=== PATIENT | female | born 1940 | race Caucasian/White ===

== ENCOUNTER → 2017-05-28 | Outpatient (CLI) | payer OTHER ==
[~2017-05-28] MED LIST: 8 HOUR C500 MG PO; ANALGESIC325 MG PO; ASPIRIN EC81 M1 PO; CARVEDILOL12.5 MG PO; CARVEDILOL3.125 MG PO; COUMADIN 4 MG TA4 M1 PO; COZAAR; COZAAR 50 MG TA50 M2 PO; FOLIC ACID1 MG PO; HCTZ; HYDROCHLOROTHIA25 M2 PO; IRON325 PO; LEVOTHROID; LOPRESSOR; M VIT PO; MEDROLDOSEPACK PO; MOBIC7.5 M1 PO; NORCO 5-325 TA1 EACH PO; PRILOSEC 20 MG20 MG PO; PYRIDOXINE HCL100 MG PO; SIMVASTATIN40 MG PO; SYNTHROID75 MCG PO; ULTRAM 50MG TAB50 MG PO
== END ==
LOC: M.RAD 11:50
DX: M54.42 Lumbago with sciatica, left side (principal); G89.29 Other chronic pain

== ENCOUNTER 2017-06-01 19:15 | Inpatient (IN) | payer OTHER ==
[~2017-06-01] VITALS: Ht 157.5 cm; Wt 86.6 kg
[~2017-06-01 19:15] MED LIST changes: -CARVEDILOL3.125 MG PO; -MEDROLDOSEPACK PO; -PRILOSEC 20 MG20 MG PO
[2017-06-01 19:21] VITALS: BP 135/43
[2017-06-01 20:03] LABS: ABSOLUTE BASOPHILS 0.1 thou/uL (0.0-0.2); ABSOLUTE EOSINOPHILS 0.1 thou/uL (0.0-0.7); ABSOLUTE LYMPHOCYTES 1.4 thou/uL (0.8-5.3); ABSOLUTE NEUTROPHILS 10.7 thou/uL (1.6-8.1); BASOPHILS 0.6 %; EOSINOPHILS 0.5 %; LYMPHOCYTES 10.2 %; MCHC 32.5 g/dL (28.0-37.0); MCV 89.1 fL (80.0-100.0); MONOCYTES 7.8 %; MPV 7.3 fl. (7.2-11.1); NUCLEATED RBCS 1 /100WBC; PLATELET COUNT* 400 thou/uL (150-400); POLYS 80.9 %; RBC 1.83 mil/uL (4.20-5.00); RDW-CV 18.8 % (10.5-14.5); WBC 13.2 thou/uL (4.0-11.0)
[2017-06-01 20:04] LABS: CREATININE 1.4 mg/dL (0.6-1.3); HEMATOCRIT 16.3 % (37.0-47.0); HEMOGLOBIN 5.3 gm/dL (12.0-15.0)
[2017-06-01 20:07] LABS: PROTIME 68.4 Seconds (9.20-11.50)
[2017-06-01 20:08] LABS: INR 7.3
[2017-06-01 20:15] LABS: ALBUMIN 3.5 g/dL (3.4-5.0); TOTAL BILIRUBIN 0.3 mg/dL (<0.1-1.0); TOTAL PROTEIN 6.7 g/dL (6.4-8.2); TROPONIN-I LEVEL 0.17 ng/mL (<0.06)
[2017-06-01 21:48] VITALS: BP 134/43
[2017-06-01 22:45] VITALS: BP 100/77; BP 119/57; BP 123/66
--- NOTE | 2017-06-01 23:30 | NUR ---
PT BROUGHT TO ICU BED 4 FROM ED. ASSESSMENT AND VS OBTAINED, SEE CHARTING. ELECTRONIC INTELLIGENCE OFFICER ON AND TRACING SR. PT IS BEING DX WITH THE FOLLOWIN:ANEMIA WHICH IS CHRONIC AND SEE'S DR WADE. DR WADE HAS BEEN GIVING PT ARAUSEP INJECTION.WITH THE ANEMIA SHE HAS BE HAVING CP. PT IS ON NC 5L AND KEEPING SATS TO NORMAL
--- NOTE | 2017-06-01 23:55 | NUR ---
COUMADIN REGIMEN AT : 3 MG-FRIDAY, FRI AND 2MG- FRI,, FRI, SAT. WAS LAST CHECKED ON 05/28/17 AND IT WAS 3. NO ORDERS WERE GIVEN TO HER TO CHANGE DOSE.
[2017-06-02] VITALS (16 sets, daily range): BP systolic 89–162; BP diastolic 40–80
[2017-06-02 01:27] LABS: HEMATOCRIT 19.5 % (37.0-47.0); HEMOGLOBIN 6.4 gm/dL (12.0-15.0)
--- NOTE | 2017-06-02 07:30 | NUR ---
ASSUMED CARE OF PATIENT AFTER RECEIVING BEDSIDE REPORT. ASSESSMENT COMPLETED, VSS. PATIENT DENIES COMPLAINTS AND CONCERNS OUTSIDE OF WANTING TO GO HOME. RN EXPLAINED RISKS OF GETTING OUT OF BED WITH BLOOD BEING THIN. REPEAT HEMOGLOBINS AND TROPONINS TRENDING. PATIENT DENIES PAIN AT THIS TIME. PATIENT ALSO TURNS SELF IN BED, RN ENCOURAGED PATIENT TO REPOSITION SELF FREQUENTLY, PATIENT STATES UNDERSTANDING. EYELINER NOTED TO RIGHT EYE AND NOT LEFT, PATIENT STATED NOT BRUISING. TAR DISTRIBUTOR OPERATOR IN PLACE, SINUS RHYTHM WITH FREQUENT PVCS NOTED. BED ALARM ON. CALL LIGHT WITHIN REACH, USE REINFORCED. WILL CONTINUE TO MONITOR.
[2017-06-02 07:42] LABS: HEMATOCRIT 23.7 % (37.0-47.0); HEMOGLOBIN 7.9 gm/dL (12.0-15.0)
[2017-06-02 07:53] LABS: PROTIME 44.2 Seconds (9.20-11.50)
[2017-06-02 07:55] LABS: INR 4.7
--- NOTE | 2017-06-02 11:00 | NUR ---
SPOKE WITH PT, AND SON IN THE ROOM ALSO. PT LIVES AT HOME WITH HER , SHE SAID THEY HAVE BEEN MANAGING FINE AT HOME. SHE IS FEELING MUCH BETTER AFTER HER BLOOD TRANSFUSION AND HOPES TO BE ABLE TO GO HOME SOON. PT DENIES ANY DISCHARGE NEEDS. HER PCP IS DR. SALAZAR, HER WAREHOUSE SUPERVISOR IS DR. REBOLLAR AND HE IS THE ONE WHO MANAGES HER COUMADIN. DISCUSSED ROLE OF CASE MGT, WILL CONTINUE TO FOLLOW.
[2017-06-02 11:05] LABS: URINE BILIRUBIN NEGATIVE (Negative); URINE BLOOD 1+ (Negative); URINE CLARITY CLEAR; URINE COLOR YELLOW; URINE GLUCOSE-RANDOM NEGATIVE (Negative); URINE KETONES NEGATIVE (Negative); URINE PROTEIN NEGATIVE (Negative); URINE SPECIFIC GRAVITY <= 1.005 (1.005-1.030); URINE UROBILINOGEN 0.2 E.U./dl (0.2-1.0)
[2017-06-02 11:06] LABS: URINE LEUKOCYTES-REFLEX 3+ (Negative); URINE NITRITE-REFLEX POSITIVE (Negative)
[2017-06-02 11:16] LABS: BACTERIA-REFLEX >30 Many /HPF (None Seen); CASTS None Seen /LPF (None Seen); CRYSTALS None Seen /LPF (None Seen); SQUAMOUS 4-10 Moderate /LPF (0-3); URINE WBC-REFLEX >25 Many /HPF (0-5); WBC CLUMPS Moderate (None Seen)
[2017-06-02 12:15] LABS: HEMATOCRIT 23.1 % (37.0-47.0); HEMOGLOBIN 7.6 gm/dL (12.0-15.0)
--- NOTE | 2017-06-02 12:23 | EKG ---
[place] [address] ELECTROCARDIOGRAM REPORT Name: NAILA LEE Room: [address] ADM IN M.R.#: [id number] Admission: 06/01/17 Attend Phys: Henry Bazzi MD Discharge: Date of : 44 Report #: [id number] THIS REPORT FOR: //name// [facility] ED Test Date: 2017-06-01 Test Time: 19:22:39 Pat Name: NAILA LEE Department: Room: [facility] Gender: F Crayon Sorting Machine Feeder: : 1940 Requested By: Neha Montgomery Order Number: [id number] MD: Jd Casas Measurements Intervals [place] Rate: 96 P: 104 NV: 192 QRS: 15 QRSD: 156 T: 56 QT: 398 QTc: 503 Interpretive Statements Sinus rhythm Right bundle branch block st depression, possible ischemia Compared to ECG 09/09/2009 08:01:51 Right bundle-branch block now present Electronically Signed On 06-02-2017 12:22:47 CDT by Jd Casas [email or web address] <ELECTRONICALLY SIGNED> By: Jd Casas MD, FAC 06/02/17 1222 21 21 Jd Casas MD, [facility] /EPI
--- NOTE | 2017-06-02 14:16 | 2DMMODE ---
[place] [address] 2 D/M-MODE ECHOCARDIOGRAM Name: NAILA LEE Room: [address] IN [facility]#: [id number] Admission: 06/01/17 Attend Phys: Henry Bazzi, Discharge: Date of : 44 Date of Service: 06/02/17 1415 Report #: [id number] THIS REPORT FOR: //name// APPROVED REPORT Study performed: 06/02/2017 09:39:18 EXAM: Comprehensive 2D, Doppler, and color-flow Echocardiogram Patient Location: In-Patient Room #: [facility] BSA: 2.06 HR: 77 bpm BP: 149/69 mmHg Other Information Study Quality: Adequate Indications Dyspnea Chest Pain 2D Dimensions LVEF(%): 44.97 (>50%) IVSd: 11.65 (7-11mm) LVOT Diam: 20.25 (18-24mm) LVDd: 42.95 mm PWd: 10.20 (7-11mm) Ascending Ao: 31.06 (22-36mm) LVDs: 33.45 (25-40mm) Aortic Root: 26.80 mm Espinosa's LVEF: 44.97 % Volumes Left Atrial Volume (Systole) LA ESV Index: 31.30 mL/m2 Aortic Valve AoV Peak Esa.: 1.45 m/s AO Peak Gr.: 8.46 mmHg LVOT Max P.69 mmHg AO Mean Gr.: 4.69 mmHg LVOT Mean P.83 mmHg LVOT Max V: 1.19 m/s AO V2 VTI: 28.30 cm LVOT Mean V: 0.77 m/s SHAGUFTA (VTI): 2.87 cm2 LVOT V1 VTI: 25.19 cm Mitral Valve MV Peak Gr.: 11.05 [place] [address] 2 D/M-MODE ECHOCARDIOGRAM Name: NAILA LEE Room: [address] IN M.R.#: [id number] Admission: 06/01/17 Attend Phys: Henry Bazzi, Discharge: Date of : 44 Date of Service: 06/02/17 1415 Report #: [id number] MV Mean Gr.: 5.02 mmHg E/A Ratio: 1.71 MV Decel. Time: 192.69 ms MV E Max Esa.: 1.54 m/s MV PHT: 55.88 ms MVA (PHT): 3.94 cm2 TDI E/Lateral E': 14.00 E/Medial E': 17.11 Medial E' Esa.: 0.09 m/s Lateral E' Esa.: 0.11 m/s Pulmonary Valve PV Peak Esa.: 1.27 m/s PV Peak Gr.: 6.46 mmHg Tricuspid Valve TR Peak Gr.: 26.94 mmHg RVSP: 31.94 mmHg Left Ventricle The left ventricle is normal size. moderate hypokinesis noted of the posterolateral wall There is normal left ventricular wall thickness. Left ventricular systolic function is mildly decreased. LVEF is 40-45%. The left ventricular diastolic function is normal. Right Ventricle The right ventricle is normal size. The right ventricular systolic function is normal. Atria Left atrium is mildly dilated. The right atrium size is normal. Aortic Valve The Aortic valve is sclerotic. No aortic regurgitation is present. There is no aortic valvular stenosis. Mitral Valve Mitral Valve replacement There is no mitral valve regurgitation noted. No evidence of mitral valve stenosis. Tricuspid Valve The tricuspid valve is normal in structure. Mild tricuspid regurgitation. The RVSP is __31.9 mmHg. Pulmonic Valve Pulmonic valve is not well visualized. There is no pulmonic [place] [address] 2 D/M-MODE ECHOCARDIOGRAM Name: DANILO LEEGAURAV Mora Room: [address] IN M.R.#: [id number] Admission: 06/01/17 Attend Phys: Henry Bazzi, Discharge: Date of : 44 Date of Service: 06/02/17 1415 Report #: [id number] Great Vessels The aortic root is normal in size. IVC is not well visualized. Pericardium There is no pericardial effusion. <Conclusion> LVEF is 40-45%. moderate hypokinesis noted of the posterolateral wall Left atrium is mildly dilated. The Aortic valve is sclerotic. Mitral Valve replacement <ELECTRONICALLY SIGNED> By: Jd Casas MD, FACC 06/02/17 1415 1415 1415 Jd Casas MD, FACC /INF
--- NOTE | 2017-06-02 16:31 | NUR ---
CONCETTA TRANSFERED TO ROOM 213 FROM ICU AT 15:50. REPORT TAKEN FROM ICU NURSE AND PATIENT TRANSPORTED VIA WHEELCHAIR TO ROOM.
--- NOTE | 2017-06-02 17:47 | CON ---
[address] [address] CONSULTATION Name: SCOTT LEERacheal Mora Room: [address] IN M.R.#: [id number] Admission: 06/01/17 Attend Phys: Henry Bazzi MD Discharge: Date of : 42 Report #: [id number] THIS REPORT FOR: //name// CC: Jd Bazzi DATE OF SERVICE: 06/02/2017 HISTORY OF PRESENT ILLNESS: The patient is a 77-year-old white female who I was asked to see in the hospital today after she complained of chest pain. The patient has an extensive past medical history. Unfortunately, not a lot of her old records are available. Apparently, she had coronary artery bypass surgery in 1998. In 2009, she suffered an acute lateral myocardial infarction, felt to be secondary to occluded vein graft. She underwent stenting of the vein graft, but developed papillary muscle rupture and underwent emergent mitral valve replacement with a mechanical mitral valve in August 2009. Because of recurrent GI bleeding, she eventually underwent hemicolectomy. The patient has been followed by Dr. Espinal since that time. The patient states that she was doing well until recently. She notes with minimal exertion, she develops pain in her chest that goes into her back and makes her short of breath. It is also constant ache in her chest. She denied any fever, cough, or swelling. She notes occasional racing of her heart, but no syncope. Because of chest pain, she finally came to the hospital yesterday and was admitted. I was asked to see her for further evaluation and treatment. She has had no syncope. She denied any bleeding. She does have a history of anemia and has been receiving Aranesp injections from her public stenographer. PAST MEDICAL HISTORY: Otherwise significant for partial colectomy because of recurrent GI bleeding. She has had previous carotid endarterectomy by Dr. Rubio. She has a history of iron deficiency anemia. She has chronic kidney disease. She has had a kidney removed in the past after kidney stones. She has had tonsillectomy. She has a history of hypertension and hyperlipidemia. No history of diabetes. MEDICATIONS: Include albuterol inhaler for asthma, aspirin a day, carvedilol, iron pills, hydrochlorothiazide, Synthroid, losartan, Mobic, simvastatin, and warfarin. ALLERGIES: She has no known drug allergies. FAMILY HISTORY: Significant for heart disease. SOCIAL HISTORY: She is . She and her live in [place]. [place] [address] CONSULTATION Name: NAILA LEE Room: [address]#: [id number] Admission: 06/01/17 Attend Phys: Henry Bazzi MD Discharge: Date of : 44 Report #: [id number] REVIEW OF SYSTEMS: She is overweight, being standing 5 feet 2 inches and weighing 190 pounds. PHYSICAL EXAMINATION: VITAL SIGNS: She had a blood pressure of 140/70, pulse 70. She was afebrile. HEENT: She was anicteric. Conjunctivae are pale. Mucous members appear dry. NECK: Veins nondistended. No carotid bruits. CHEST: Clear to auscultation. HEART: Regular rate and rhythm with a metallic mitral opening and closing sound. ABDOMEN: Obese. EXTREMITIES: Had no pitting edema. Dorsalis pedis pulse cannot be palpated. SKIN: Cool and dry. NEUROLOGIC: Nonfocal. Her ECG from last night showed a sinus rhythm, occasional PVC with a right bundle, nonspecific ST and T-wave changes. Workup in the emergency room last night, she had a portable chest x-ray that showed granuloma of the lung, otherwise clear lung jones, evidence of previous sternotomy. Her lab work, sodium 138, BUN is 55, creatinine is 1.4, glucose 132. Liver function studies are normal. Troponin is 1.28. Her INR was 7.3. Her white blood cell count 13.2, hemoglobin on admission was 5.3. IMPRESSION AND RECOMMENDATIONS: 1. Non-ST elevation myocardial infarction, previous bypass surgery and stenting, suspect secondary to severe anemia. I would not recommend cardiac catheterization at this time. 2. Previous mitral valve replacement. Recommend repeat echocardiogram. I would continue anticoagulation, maintain an INR of 2.5 to 3. 3. History of hypertension. The patient has been on a beta olimpia, diuretic and ARB. 4. Hyperlipidemia. The patient is on a statin drug. 5. History of asthma. 6. Obesity. 7. Previous carotid endarterectomy. 8. Chronic anemia. The patient had previous hemicolectomy. The patient is followed by hematology. 9. Elevated INR. I would hold warfarin until INR is between 2.5 and 3. 10. Chronic kidney disease. <ELECTRONICALLY SIGNED> By: Jd Casas MD, FACC 06/02/17 1747 0858 [id number] Casas MD, FACC /nt
--- NOTE | 2017-06-02 18:07 | NUR ---
PATINET RESTING IN CHAIR IN ROOM. VITAL SIGNS DSTABLE AND PATIENT IN NOAPPARENT DISTRESS AT THIS TIME. HOURLY ROUNDING COMPLETED FOR PATINET SAFETY. IV PROTONIX PER ORDERS. INR 4.7. EF 40-45%
[2017-06-02 20:46] LABS: HEMATOCRIT 29.5 % (37.0-47.0); HEMOGLOBIN 9.9 gm/dL (12.0-15.0)
--- NOTE | 2017-06-02 23:39 | NUR ---
PT ALERT ORIENTED. TELEMETRY SHOW SR. PT UP AD DAYNE IN ROOM. PROTONIX AT 8MG/HR OR 20MLS/HR. WILL CONTINUE TO MONITOR.
[2017-06-03 00:32] VITALS: BP 120/47
[2017-06-03 04:00] VITALS: BP 130/41
[2017-06-03 05:50] LABS: HEMATOCRIT 27.9 % (37.0-47.0); HEMOGLOBIN 9.5 gm/dL (12.0-15.0); PROTIME 24.2 Seconds (9.20-11.50)
[2017-06-03 06:07] LABS: INR 2.5
[2017-06-03 06:16] LABS: ANION GAP 12 mmol/L (7-16); BUN 39 mg/dL (7-18); CALCIUM 8.7 mg/dL (8.5-10.1); CHLORIDE 102 mmol/L (98-107); CHOLESTEROL 158 mg/dL (<200); CO2 22 mmol/L (21-32); CREATININE 1.3 mg/dL (0.6-1.3); GLUCOSE 104 mg/dL (70-99); HDL CHOLESTEROL 47 mg/dL (>40); LDL CHOLESTEROL 70 mg/dL (<100); MAGNESIUM 1.7 mg/dL (1.8-2.4); POTASSIUM 3.5 mmol/L (3.5-5.1); SODIUM 136 mmol/L (136-145); TC:HDL 3.4 Ratio (Not establshd); TRIGLYCERIDE 206 mg/dL (<150); VLDL 41 mg/dL (<40)
[2017-06-03 06:20] LABS: SERUM ASSESSMENT Clear
[2017-06-03 06:27] LABS: HEMATOCRIT 28.2 % (37.0-47.0); HEMOGLOBIN 9.5 gm/dL (12.0-15.0); MCH 30.2 pg (26.0-34.0); MCHC 33.7 g/dL (28.0-37.0); MCV 89.5 fL (80.0-100.0); MPV 7.4 fl. (7.2-11.1); RBC 3.15 mil/uL (4.20-5.00); WBC 13.7 thou/uL (4.0-11.0)
--- NOTE | 2017-06-03 10:55 | EKG ---
[place] [address] ELECTROCARDIOGRAM REPORT Name: NAILA LEE Room: [address] ADM IN M.R.#: [id number] Admission: 06/01/17 Attend Phys: Henry Bazzi MD Discharge: Date of : 44 Report #: [id number] THIS REPORT FOR: //name// [facility] Test Date: 2017-06-03 Test Time: 08:23:42 Pat Name: NAILA LEE Department: Room: [facility] Gender: F Expediter Service Order: KAT : 1940 Requested By: Henry Bazzi Order Number: [id number] Reading MD: Jd Casas Measurements Intervals [place] Rate: 86 P: -28 TX: 129 QRS: -11 QRSD: 80 T: QT: 367 QTc: 439 Interpretive Statements Sinus rhythm Low voltage, extremity leads Nonspecific T abnormalities, lateral leads Baseline wander in lead(s) III,aVF Compared to ECG 06/01/2017 19:22:39 Low QRS voltage now present Right bundle-branch block no longer present Electronically Signed On 06-03-2017 10:55:33 CDT by Jd Casas [email or web address] <ELECTRONICALLY SIGNED> By: Jd Casas MD, [facility] 06/03/17 1055 2 2 Jd Casas MD, [facility] /EPI
--- NOTE | 2017-06-03 11:41 | NUR ---
Nutrition: Pt seen for nursing risk 2 points. Pt not in room at time of visit. Per RN, nusanjay of wt hx/loss. Pt is not eating well. On CLD - RD ordered Boost Breeze. Albumin 3.5, BNP 2043, BG ok. RX: vit C, statin, heparin. Wt: 191#. Inadequate oral intake R/T diet order AEB CLD. Advance diet as appropriate. Boost Breeze daily. Consider Mild to Low risk.
[2017-06-03 12:00] VITALS: BP 111/52
[2017-06-03 16:32] VITALS: BP 155/63
[2017-06-03 18:22] LABS: INR 2.1; PROTIME 19.8 Seconds (9.20-11.50)
[2017-06-03 20:00] VITALS: BP 142/74
[2017-06-03 22:42] VITALS: BP 126/57; BP 130/52
[2017-06-04 04:00] VITALS: BP 141/45
--- NOTE | 2017-06-04 05:10 | NUR ---
INITAL ASSESSMENT PT ALERT ORIENTED. UP AD DAYNE IN ROOM. HEPARIN AT 1100 UNITS/HR. PTT AT 2100 WAS 198.4. HEPARIN QTT OFF X ONE HR AND RESTARTED AT 800 UNITS/HR. NEXT PTT DRAWN AT 0500. FFP GIVEN FOR INR 2.1. PT NPO AT AL FOR EGD. PROTONIX QTT AT 8MG/HR. TELEMETRY SHOWS SR BBB. WILL CONTINUE TO MONITOR.
[2017-06-04 05:27] LABS: HEMATOCRIT 24.7 % (37.0-47.0); HEMOGLOBIN 8.6 gm/dL (12.0-15.0)
[2017-06-04 05:48] LABS: INR 1.3; PROTIME 12.8 Seconds (9.20-11.50)
[2017-06-04 11:33] VITALS: BP 141/68
[2017-06-04 15:10] VITALS: BP 141/68
[2017-06-04 17:39] VITALS: BP 136/49
--- NOTE | 2017-06-04 18:14 | NUR ---
CONCETTA RESTING IN CHAIR IN ROOM. BOWEL PREP UNDERWAY AND PATIENT TOLERATING UP TO THIS POINT. VITAL SIGNS STABLE AND PATIENT IN NOAPPARENT DISTRESS. IV HEPARIN INFUSING AND PTT SHEDULED FOR 00:30. HOURLY ROUNDING COMPLETED FOR PATIENT SAFETY.
[2017-06-04 20:00] VITALS: BP 134/57
[2017-06-04 23:45] VITALS: BP 148/59
[2017-06-05 00:47] LABS: HEMATOCRIT 28.6 % (37.0-47.0); HEMOGLOBIN 9.5 gm/dL (12.0-15.0); MCH 29.9 pg (26.0-34.0); MCHC 33.1 g/dL (28.0-37.0); MCV 90.5 fL (80.0-100.0); RBC 3.16 mil/uL (4.20-5.00); RDW-CV 17.1 % (10.5-14.5); WBC 14.1 thou/uL (4.0-11.0)
[2017-06-05 01:05] LABS: CALCIUM 9.1 mg/dL (8.5-10.1); CREATININE 1.3 mg/dL (0.6-1.3); MAGNESIUM 1.7 mg/dL (1.8-2.4); POTASSIUM 3.6 mmol/L (3.5-5.1)
[2017-06-05 01:24] LABS: INR 1.1; PROTIME 10.7 Seconds (9.20-11.50)
[2017-06-05 04:00] VITALS: BP 150/61
--- NOTE | 2017-06-05 05:51 | NUR ---
PT CARE ASSUMED AFTER REPORT. ASSESSMENT COMPLETE. SR ON MONITOR. IV HEPARIN INFUSING. IV PROTONIX NOT GIVEN R/T NO 2ND IV ACCESS. 2ND IV ACCESS ATTEMPTED BY THIS RN AND NURSING ECONOMIC DEVELOPMENT MANAGER. DR NAVARRETE NOTIFIED. PT CONFUSED THIS AM WHEN SHE WOKE UP. ORIENTED X4 NOW. UP AD DAYNE WITH STEAY GAIT. NPO FOR COLONOSCOPY TODAY. BOWEL PREP OVERNIGHT. CALL LIGHT IN REACH. BED IN LOWEST POSITION. AT BEDSIDE OVERNIGHT. PROGRESSING TOWARDS SOME GOALS.
[2017-06-05 07:30] VITALS: BP 134/42; BP 160/51
[2017-06-05 08:00] VITALS: BP 160/51
--- NOTE | 2017-06-05 10:05 | NUR ---
vss, assumed care in the am, assessment PERFORMED AND CHARTED. FALL PRECAUTIONS IN PLACE AND CALL LIGHT IN REACH, PT IS ON RA AND UP AD DAYNE AND AND WAS UP AT BEDSIDE DURING BED SIDE REPORT. PT DENIES ANY PAIN AND IS TRACING SR ON THE MONITOR, PT IS NPO FOR COLOENOSCOPY, HEPRIN DRIP IS AT 10 WILL FOLLOW WITH PLAN OF CARE.
[2017-06-05 11:28] VITALS: BP 119/40
[2017-06-05 11:40] VITALS: BP 141/68
[2017-06-05 12:18] VITALS: BP 134/42
--- NOTE | 2017-06-05 15:31 | NUR ---
Pt to have colon today, possible dc to home tomorrow. Pt unsure if she will need HH, CM to f/u tomorrow.
--- NOTE | 2017-06-05 18:44 | NUR ---
VSS, PT IS PROGRESSING TOWARDS GOAL, PT IS A&O4 ON RA AND UP AD DAYNE, PT APTT IS THERAPUTIC AND HR IS TRACIN SR ON THE MONITOR, COLENOSCOPY COMPLETED, PT DENIES ANY PAIN AT THIS TIME WILL FOLLOW WITH PLAN OF CARE AND HOURLY ROUNDS COMPLETED.
[2017-06-06] VITALS: BP 101/34
--- NOTE | 2017-06-06 03:17 | NUR ---
ASSUMED CARE OF PT AT 1900. PT IS ALERT AND ORIENTED. VSS. PERRLA. NO COMPLAINTS OF PAIN. HEPARIN REMAINS AT 1000 UNITS PER HR. PTT TO BE DRAWN THIS MORNING. PT IS IN SINUS RYTHM ON THE TELEMETRY. PT IS RESTING COMFORTABLY IN BED. RESPIRATIONS ARE EVEN AND NONLABORED. WILL CONTINUE TO MONITOR PT.
[2017-06-06 04:00] VITALS: BP 127/63
[2017-06-06 05:24] LABS: HEMATOCRIT 23.7 % (37.0-47.0); HEMOGLOBIN 7.9 gm/dL (12.0-15.0)
[2017-06-06 06:08] LABS: APTT 66.9 Seconds (25.0-31.3); INR 1.2; PROTIME 11.3 Seconds (9.20-11.50)
[2017-06-06 07:30] VITALS: BP 135/42
--- NOTE | 2017-06-06 10:50 | NUR ---
VSS, ASSUMED CARE IN THE AM, ASSESSMENT PERFORMED AND CHARTED. FALL PRECAUTIONS IN PLACE AND CALL LIGHT IN REACH, PT IS A&O4 AND UP AD DAYNE, PT IS ON RA AND IS TRACING SR ON THE MONITOR, PT DENIES ANY PAIN AND HER GOAL IS TO WALK IN THE ROOM AND SIT UP IN CHAIR PT IS TO GET BLOOD TODAY, WILL FOLLOW WITH PLAN OF CARE.
[2017-06-06 11:34] VITALS: BP 105/37
[2017-06-06 13:36] LABS: HEMATOCRIT 23.4 % (37.0-47.0); HEMOGLOBIN 7.8 gm/dL (12.0-15.0)
--- NOTE | 2017-06-06 14:11 | NUR ---
Spoke with Pt regarding disposition, she does not believe that she will need HH. Per GI, Pt will need Sasndostatin inj at dc, Pt states that she is comfortable with doing them herself at home. Anticipate cost to be approx $80/25 day supply. Prior auth will need to be obtained. No weekend dc.
[2017-06-06 15:53] VITALS: BP 113/46; BP 121/50; BP 133/48
[2017-06-06 16:00] VITALS: BP 116/59
--- NOTE | 2017-06-06 18:29 | NUR ---
VSS, NO STATUS CHANGE, PT UP WITH ONE, ON RA AND IS TRACING SR ON THE MONITOR, PT GOAL IS TO IMPROVE HGR AND INR, HEPRIN DRIP IS GOING AT 10, HOURLY ROUNDS COMPLETED AND WILL FOLLOW WITH PLAN OF CARE,
[2017-06-07] VITALS (7 sets, daily range): BP systolic 114–145; BP diastolic 48–64
--- NOTE | 2017-06-07 03:03 | NUR ---
RECIEVED REPORT AND TOOK PT INTO CARE AT 1930. VSS. COMPLETED ASSESSMENT AT 2030 CHARTED. PT ON FALL PRECAUTIONS. C/O PAIN ON HER BACK ROUTINELY. PT RESTING IN BED AT THIS TIME. A & O, ABLE TO MAKE NEEDS KNOWN, AND USES CALL LIGHT NEEDED. WILL CONTINUE WITH PLAN OF CARE.
[2017-06-07 05:19] LABS: HEMATOCRIT 25.4 % (37.0-47.0); HEMOGLOBIN 8.6 gm/dL (12.0-15.0); MCH 30.3 pg (26.0-34.0); MCHC 33.8 g/dL (28.0-37.0); MCV 89.6 fL (80.0-100.0); MPV 7.1 fl. (7.2-11.1); RBC 2.84 mil/uL (4.20-5.00); RDW-CV 16.7 % (10.5-14.5); WBC 10.4 thou/uL (4.0-11.0)
[2017-06-07 06:34] LABS: CALCIUM 8.5 mg/dL (8.5-10.1); CREATININE 1.3 mg/dL (0.6-1.3); POTASSIUM 3.4 mmol/L (3.5-5.1)
--- NOTE | 2017-06-07 13:37 | NUR ---
ASSUMED CARES OF PT AT 0700. PT IN BED, BED IN LOW LOCKED POSITION. FALL PRECAUTIONS IN PLACE. CALL BUTTON AND PERSONAL ITEMS IN PT REACH. PT A&O X4, SPOUSE AT BEDSIDE. TRUCK HOP TRACING NSR, EF% 40-45%. LCTAB, VSS ON RA, AFEBRLE, PERRLA, SKIN INTACT, NO EDEMA NOTED. PT UP SBA TO BATHROOM, PT STEADY GAIT, WALKS WITH IV POLE. PT DENIES PAIN AT THIS TIME. LFA IV SL, RIGHT FA IV HEPARIN INFUSING 10 ML/HR, 1000 UNITS/HR. MONITORING COUMADIN LEVELS. DR. ARAUJO D/C'D BED ALARM THIS SHIFT. HOURLY ROUNDING CONTINUES. PT PROGRESSING TOWARDS GOAL. WILL CONTINUE TO MONITOR PT PROGRESS AND STATUS. PT PLEASANT, COOPERATIVE. TAKES MEDS WELL PO.
--- NOTE | 2017-06-07 19:05 | NUR ---
REPORT TO PACKING HOUSE LABORER FOR CONTINUED CARES. PT REMAINS STABLE, VSS ON RA. PT UP INDEPENDENTLY. HEPARIN DRIP CONTINUES, TOLERATED, NO AVR. HOURLY ROUNDS COMPLETED. PT PROGRESSING TOWARDS GOAL. ASSESSMENTS COMPLETED.
--- NOTE | 2017-06-07 20:43 | NUR ---
PT IS REFUSING TO HAVE HER BED ALARM ON. I ENCOURAGED PT TO KEEP BED ALARM AND I EXPLAINED TO HER THE RISKS OF NOT HAVING HER BED ALARM BUT PT IS STILL REFUSING TO HAVE IT. SO, THE BED ALARM IS TURNED OFF AT THIS TIME AND PT IS AWARE OF POSSIBLE CONSEQUENCES.
--- NOTE | 2017-06-08 02:36 | NUR ---
TOOK PT INTO CARE AT 1930. A & O, NO C/O PAIN, ABLE TO MAKE NEEDS KNOWN. PT REFUSED BED ALARM AND IS AWARE OF CONSEQUENCES. ON HEPARIN DRIP OF 10ML/HR, APPT QAM. ASSESSMENT NOTED CHARTED. PT REFUSES LIPITOR R/T NOT LIKING IT. WILL CONTINUE PLAN WITH PLAN OF CARE.
[2017-06-08 04:00] VITALS: BP 120/66
[2017-06-08 04:29] LABS: HEMATOCRIT 27.9 % (37.0-47.0); HEMOGLOBIN 9.4 gm/dL (12.0-15.0); MCHC 33.8 g/dL (28.0-37.0); MPV 6.9 fl. (7.2-11.1); RBC 3.14 mil/uL (4.20-5.00); RDW-CV 16.4 % (10.5-14.5); WBC 9.4 thou/uL (4.0-11.0)
[2017-06-08 05:05] LABS: CALCIUM 9.2 mg/dL (8.5-10.1); CREATININE 1.1 mg/dL (0.6-1.3); POTASSIUM 3.8 mmol/L (3.5-5.1)
[2017-06-08 05:38] LABS: INR 1.1
[2017-06-08 05:39] LABS: PROTIME 10.5 Seconds (9.20-11.50)
--- NOTE | 2017-06-08 09:58 | PROC ---
[address] [address] PROCEDURE REPORT Name: SCOTT LEEN Morgan Room: [address] IN M.R.#: [id number] Admission: 06/01/17 Attend Phys: Henry Bazzi MD Discharge: Date of : 44 Report #: [id number] THIS REPORT FOR: //name// CC: Jd Mota MD DATE OF SERVICE: 06/05/2017 REFERRING PHYSICIAN: Henry Bazzi MD PROCEDURE PERFORMED: Colonoscopy with terminal ileoscopy. SEDATION USED: Monitored anesthesia care with propofol. SPECIMEN RETRIEVED: None. INDICATIONS: The patient is a very pleasant 77-year-old white female who has had problems with chronic recurrent GI bleeding who was seen in consultation by my partner, Dr. Andrade, and underwent upper endoscopy yesterday, which was unrevealing. The patient has a longstanding history of chronic GI bleeding and has undergone multiple endoscopic evaluations of her upper and lower GI tract as well as small bowel capsule studies and even GI tagged red blood cell scans, mesenteric arteriograms and the like. She at one point has even had surgical intervention with removal of portion of her colon because of active bleeding within the sigmoid colon. She has to be on chronic anticoagulation because of an artificial heart valve. She is here now for endoscopic evaluation of her lower GI tract to evaluate for any source within her lower GI tract to explain her recurrent bleeding. See GI consultation and progress notes for further details. I should note that over the years, the patient has had close to 35 units of blood since 2009 and multiple evaluations mostly at [facility] for her GI bleeding. PHYSICAL EXAMINATION: GENERAL: Pleasant 77-year-old white female who is awake and alert. CARDIOPULMONARY: Revealed a regular rate and rhythm. LUNGS: Clear. ABDOMEN: Soft and not tender. No rebound or guarding noted. DESCRIPTION OF PROCEDURE: After informed consent, [place] [id number] PROCEDURE REPORT Name: NAILA LEE Room: [address] IN .R.#: [id number] Admission: 06/01/17 Attend Phys: Henry Bazzi MD Discharge: Date of : 42 Report #: [id number] rectal exam was unremarkable. Olympus video colonoscope was advanced under direct vision to the level of the cecum, which was identified by ileocecal valve and appendiceal orifice. The cecum, ascending, transverse, descending, sigmoid colon were circumferentially inspected in a well prepped colon. The patient had postsurgical changes at 15-20 cm from the anal verge compatible with the previous sigmoid resection with an end-to-end anastomosis. There is no inflammatory stricture, narrowing or any abnormalities noted from the same. She did have a few diverticula noted within the left colon, but there was no blood noted within the same. The remainder of the colon to the level of the terminal ileum was unremarkable. She did, however, have one prominent blood vessel extending from the anal verge to about 10 cm from the same of uncertain etiology and significance. There was nothing to suggest this was a rectal varix, but certainly this could be possible. There is no bleeding noted from the same. The remainder of the colon to the level of the terminal ileum is normal. The scope was withdrawn. The patient was sent to recovery in stable condition. IMPRESSION: 1. Postsurgical changes noted at 15 cm from the anal verge compatible with previous sigmoid resection with an end-to-end anastomosis. 2. Few colonic diverticula noted within the left colon. 3. Prominent blood vessel noted within the rectal vault of uncertain significance without findings to suggest that this is an obvious rectal varix -- no bleeding noted, so no therapy was rendered. 4. Otherwise, normal colonoscopy and terminal ileoscopy. RECOMMENDATIONS: 1. We will allow the patient to go ahead and resume a heart healthy diet at this point in time. 2. She can resume her Coumadin at this point in time while bridging her with Lovenox or heparin while maintaining her INR in the therapeutic range. 3. As the patient has already undergone extensive testing of her upper and lower GI tract and her small bowel with small bowel capsule study, I am not inclined to repeat this at this time. 4. We could consider the addition of Sandostatin or octreotide 25-50 mcg subq every 12 hours for possible GI bleeding within the small bowel due to suspected angioectasia. This, however, would need to be approved by her insurance before beginning the patient's medication plus the patient will have to be consented to the same and be able to self administer the octreotide. This can be discussed with the patient when she is more awake and will likely need a prior authorization for the same. <ELECTRONICALLY SIGNED> By: Yonathan Alexander DO 06/08/17 0958 [id number] Alexander DO /nt
[2017-06-08 12:34] VITALS: BP 132/82
[2017-06-08 15:58] VITALS: BP 141/56
--- NOTE | 2017-06-08 18:11 | NUR ---
PATINET RESTING IN CHAIR IN ROOM. UP IN ROOM AD DAYNE WITH PATIENT EDUCATED REGARDING THE RISK OF FALL. HEPARIN GTT INFUSING AT 1000 U/HR. PTT LAB FOR AM TOMORROW. WARFARIN 3MG GIVEN, INR 1.1 ON TODAYS MORNING LAB. AWAITING THERAPEUTIC INR FOR DISCHARGE. VITAL SIGNS STABLE AND PATINET IN NO APPARENT DISTRESS AT THIS TIME. PATINET ON ROOM AIR. NSR ON MONITOR. HOURLR ROUNDING COMPLETED FOR PATIENT SAFETY.
--- NOTE | 2017-06-08 19:47 | NUR ---
THIS NURSE RECEIVES REPORT FROM SHAKEEL CARL AT 1915, PT SITTING UP IN CHAIR VISITING WITH , LASIX INFUSING TO IV IN RT FA, PT DENIES PAIN, N/V, OR SOA, PT IS ALERT AND ORIENTED X4, EXPRESSES NO COMPLAINTS/CONCERNS AT THIS TIME
[2017-06-08 20:00] VITALS: BP 142/58
[2017-06-09 00:26] VITALS: BP 153/62
[2017-06-09 04:16] VITALS: BP 117/70
[2017-06-09 07:49] LABS: INR 1.2; PROTIME 11.4 Seconds (9.20-11.50)
[2017-06-09 11:48] VITALS: BP 138/67
--- NOTE | 2017-06-09 12:27 | NUR ---
CALLED TO INITIATE PRIOR AUTH FOR OCTREOTIDE, CALLED [id number] [phone] AND SPOKE WITH JEROD. SHE COMPETED PRIOR AUTH INFORMATION AND SUBMITTED, THE DECISION WILL BE FAXED TO DR. NORWOOD OFFICE IN 24-72 HOURS. SHE WAS UNABLE TO TELL ME OVER THE PHONE IF THE DRUG WAS APPROVED FOR HOME USE.
--- NOTE | 2017-06-09 15:07 | CON ---
[address] [address] CONSULTATION Name: SCOTT LEERacheal Mora Room: [address] IN M.R.#: [id number] Admission: 06/01/17 Attend Phys: Henry Bazzi MD Discharge: Date of : 44 Report #: [id number] THIS REPORT FOR: //name// CC: Jd Bazzi DATE OF SERVICE: 06/02/2017 ADDENDUM The patient with history of artificial cardiac valve who is on anticoagulation therapy. The patient presented with high INR levels and drop in the hemoglobin. She has history of NSAID use, meloxicam. We will try to bring the INR down and monitor her hemoglobin. We will continue the Protonix drip, which was initiated in the ER and perform an upper endoscopy when the INR is below 1.5. <ELECTRONICALLY SIGNED> By: Tyrone Andrade MD 06/09/17 1507 1443 [id number] Andrade MD /nt
--- NOTE | 2017-06-09 15:07 | CON ---
[address] [address] CONSULTATION Name: NAILA LEE Room: [address] IN .R.#: [id number] Admission: 06/01/17 Attend Phys: Henry Bazzi MD Discharge: Date of : 42 Report #: [id number] THIS REPORT FOR: //name// CC: Jd Bazzi DICTATED BY: Juana RESENDIZ DATE OF SERVICE: 06/02/2017 Juana Lancaster [facility], dictating consultation note for Dr. Tyrone Andrade. PRIMARY CARE PHYSICIAN: Jd White M.D. Please note at the time of this dictation, the patient was seen and physically examined by myself. REASON FOR CONSULTATION: Gastrointestinal bleed and anemia. HISTORY OF PRESENT ILLNESS: This is a 77-year-old female who presented to the Emergency Room with intermittent chest pain and shortness of air which was worsening over the last 2 days. She states the pain was sudden on onset. She denied any nausea, vomiting or diarrhea. She does get weekly shots of Aranesp from her warehouse shipping clerk for her anemia and she is also on Coumadin, which she states five days ago, her INR was 3. On admission, the patient's INR was 7.3. The patient states that her stools have been dark, but they have been that way for a long time because she does take an iron supplement. However, her stool tested positive for blood. The patient states her last endoscopy studies were done at [facility] approximately 3-5 years ago after she had her valve replaced at that time. The patient has been taking meloxicam as well for the past 3 years. She states just recently she has not taken it for the past week and has just started taking it as needed. ALLERGIES: No known drug allergies. MEDICATIONS: From home include meloxicam, aspirin, hydrochlorothiazide, Synthroid, Cozaar, ascorbic acid, carvedilol, iron, folic acid, Zocor and warfarin. PAST MEDICAL HISTORY: Hypertension, history of an [place], hypothyroidism and anemia. PAST SURGICAL HISTORY: She had a CABG in 1997. She has had her valve replaced several years ago, mitral valve, tonsillectomy, left nephrectomy, partial colectomy back in 2013 [place] [address] CONSULTATION Name: SCOTT LEEN Morgan Room: [address] IN [facility]#: [id number] Admission: 06/01/17 Attend Phys: Henry Bazzi MD Discharge: Date of : 44 Report #: [id number] FAMILY HISTORY: Noncontributory. SOCIAL HISTORY: Alcohol on special occasions. Denies any tobacco or illegal drug use at this time. REVIEW OF SYSTEMS: Twelve-point review of systems is essentially negative, except what is mentioned in the HPI. PHYSICAL EXAMINATION: VITAL SIGNS: Temperature 36.7, pulse 71, respirations 14 and blood pressure 117/57. HEART: Regular rate and rhythm, with valvular click noted. LUNGS: Decreased, but clear. ABDOMEN: Soft. Positive bowel sounds in all 4 quadrants, with just some very minimal epigastric tenderness noted to palpation. LABORATORY DATA: Hemoglobin on admission was 5.3. She has received 2 units of blood. She is currently up to 7.9. Hematocrit 23.7. INR this morning was 4.7 with a PT of 44.2. Sodium 138, potassium 4, chloride 102, CO2 of 21, BUN is 55, creatinine is 1.4, GFR is 37 and glucose of 132. Her folate was 93.8. B12 was 451, ferritin 209, TIBC 345 and iron was 88. She had positive nitrites in her urine as well. IMPRESSION: 1. Gastrointestinal bleed. 2. Occult positive stools. 3. Acute anemia. History of pernicious anemia. 4. Anticoagulant therapy, warfarin for valvular replacement. 5. Nonsteroidal anti-inflammatory drug use, meloxicam. PLAN: 1. Protonix drip, continue. 2. Obtain records from her last endoscopy study done at [place]. 3. We will need to wait until INR normalizes before performing an EGD. 4. The patient is to stop all NSAIDs including meloxicam on a regular basis. Thank you for allowing us to participate in this patient's care. Please do not hesitate to call with any questions in regard to this consult. <ELECTRONICALLY SIGNED> By: Tyrone Andrade MD 06/09/17 1507 1237 [id number] Andrade MD /nt
[2017-06-09 16:02] VITALS: BP 132/70
--- NOTE | 2017-06-09 16:45 | NUR ---
PATIENT RESTING IN BED. UP AD DAYNE IN ROOM WITH HEPARIN INFUSING. INR 1.2 TODAY WITH WRFARIN DOSING PER PRIMARY MD. VITAL SIUGNS STABLE. HOURLY ROUNDING COMPLETED FOR CONCETTA SAFETY
[2017-06-09 20:15] VITALS: BP 172/85
[2017-06-10 00:05] VITALS: BP 154/74
--- NOTE | 2017-06-10 03:04 | NUR ---
TOOK PT INTO CARE AT 1930. PT REMAINS ON HEPARIN DRIP OF 10 ML/HR, NO C/O PAIN, DIZZINESS, OR NAUSEA. COMPLETED ASSESSMENT CHARTED. WAITING FOR PT/INR TO BE THERAPEUTIC. PT IS RESTING IN BED AT THIS TIME. WILL CONTINUE WITH PLAN OF CARE.
[2017-06-10 04:00] VITALS: BP 146/75
[2017-06-10 05:25] LABS: HEMATOCRIT 28.2 % (37.0-47.0); HEMOGLOBIN 9.5 gm/dL (12.0-15.0); MCH 29.8 pg (26.0-34.0); MCHC 33.8 g/dL (28.0-37.0); MPV 7.3 fl. (7.2-11.1); RBC 3.21 mil/uL (4.20-5.00); RDW-CV 16.2 % (10.5-14.5); WBC 7.3 thou/uL (4.0-11.0)
[2017-06-10 05:38] LABS: INR 1.2; PROTIME 11.7 Seconds (9.20-11.50)
[2017-06-10 07:36] VITALS: BP 143/76
[2017-06-10 11:46] VITALS: BP 117/78
--- NOTE | 2017-06-10 14:23 | NUR ---
This RN agrees with the assessment of SN. Luis
[2017-06-10 16:00] VITALS: BP 158/83
--- NOTE | 2017-06-10 19:42 | NUR ---
PATINET RESTING BED. HEPARING INFUSING AT 1174 UNIT/HR. APPT ORDERED. UP AD DAYNE IN ROOM. AOX4. HOURLY ROUNDING COMPLETD FOR PATINET SAFETY AND PATIENT PROGRESSING TOWADS GOALS.
[2017-06-10 20:00] VITALS: BP 158/70
[2017-06-11] VITALS (7 sets, daily range): BP systolic 133–150; BP diastolic 50–79
--- NOTE | 2017-06-11 04:00 | NUR ---
TOOK PT INTO CARE AT 1930, NO C/O PAIN, A & O X 4, ABLE TO MAKE NEEDS KNOWN. ASSESSMENT NOTED CHARTED. HEPARIN RUNNING AT 8.74 ML/HR, DRAWING APTT AT 0400 FOR REASSESSMENT OF THERAPY. PT ALSO ON COUMADIN FOR MITRAL VALVE. REPLACED IV AT ABOUT 2300 TO THE RIGHT HAND, R/T LAST IV LEAKING. WILL CONTINUE TO MONITOR AND WITH PLAN OF CARE.
[2017-06-11 04:42] LABS: INR 1.4
--- NOTE | 2017-06-11 06:01 | NUR ---
PTT IS 79.8. HEPARING TURNED DOWN TO 6.74 ML/HR OF 674 UNITS PER HOUR. REDRAW PTT AT 1200.
--- NOTE | 2017-06-11 08:42 | NUR ---
VSS, ASSUMED CARE IN THE AM, ASSESSMENT PERFORMED AND CHARTED, FALL PRECAUTIONS IN PLACE AND CALL LIGHT IN REACH, PT IS ON RA AND TRACING SR ON THE MONITOR, IS A&O4 AND IS UP WITH STAND BY, PT REFUSES BED ALARM AND WILL NOT CALL OUT FOR HELP WHEN GETTING, WILL FOILLOW WITHPLAN OF CARE.
--- NOTE | 2017-06-11 13:19 | NUR ---
CM left message on nurse line at Dr Alexander' office to inquire into if they know the status of Pt's Sandostatin inj Rx to be administered for home use. Awaiting call back
--- NOTE | 2017-06-11 13:59 | NUR ---
I HAVE REVIEWED THE STUDENT'S CHARTING.
--- NOTE | 2017-06-11 15:31 | NUR ---
VSS, PERFORMED REASSESSMENT, PT HAS HAD NO STATUS CHANGE FROM MORING ASSESSMENT, PT IS STILL ON RA AND IS NOW MED-SURG STATUS, DENIES ANY PAIN AND STILL GETS UP WITHOUT CALLING OUT FOR HELP, PT IS REFUSING CALL LIGHT AND BED ALARM. WILL FOLLOW WITH PLAN OF CARE, PT HAS A HEPRIN DRIP RUNNING.
--- NOTE | 2017-06-11 18:04 | NUR ---
VSS, HOURLY ROUNDS COMPLETED,
[2017-06-12 00:39] VITALS: BP 136/58
--- NOTE | 2017-06-12 02:28 | NUR ---
RESTING MOST ON NIGHT. CONT. IV HEPARIN, NEXT APTT AT 1200, TODAY. DENIES PAIN OR DISCOMFORT, NO SIGN OF DISTRESS. BED IN LOW POSITION, CALL LIGHT IN REACH, BED ALARM ON, FALL PRECAUTIONS IN PLACE.
[2017-06-12 04:53] LABS: PROTIME 19.2 Seconds (9.20-11.50)
[2017-06-12 05:01] LABS: HEMATOCRIT 29.1 % (37.0-47.0); HEMOGLOBIN 9.9 gm/dL (12.0-15.0)
--- NOTE | 2017-06-12 05:51 | NUR ---
INR 2.0 THIS AM, CONT. HEPARIN DRIP TIL 2.5, NEXT APTT AT NOON TODAY
[2017-06-12 08:01] VITALS: BP 116/63
--- NOTE | 2017-06-12 09:37 | NUR ---
ASSUMED CARE OF PT THIS AM AROUND 0715- PT JENELLE MED SURG STATUS- UPON ASSESSMENT PT NOTED TO BE RESTING IN BED, WATCHING TV- PT A&O X4- CONTINENT OF BOWEL AND BLADDER- SBA WITH TRANSFERS FOR SAFETY- LCTA, RESP EVEN AND UN-LABORED- VSS, O2 SAT 97% ON RA- ABDOMEN SOFT/ROUND/NON-TENDER, BS X4 QUADS- LAST BM REPORTED 06/11/17- TRACE EDEMA NOTED TO BLE- IV NOTED TO RIGHT WRIST INTACT WITH IV HEPARIN INFUSING ORDERED, NEXT APTT DUE TO BE DRAWN AT 1200 THIS SHIFT- CURRENT INR 2.0-GOOD PO INTAKE NOTED THIS AM WITH BREAKFAST- PT DENIES ANY C/O PAIN/DISCOMFORT AT THIS TIME- CALL LIGHT AND PERSONAL BELONGINGS WITH IN REACH- HOURLY ROUNDS IN PLACE R/T SAFETY/NEEDS- ALL NEEDS MET AT THIS TIME-WCTM
[2017-06-12 15:37] VITALS: BP 184/67
[2017-06-12 16:30] VITALS: BP 157/71
--- NOTE | 2017-06-12 16:33 | NUR ---
PT CURRENLTY UP IN BED SIDE CHAIR VISITING WITH - IV TO RIGHT HAND INTACT, HEPARIN INFUSING PRESCIBED- 1200 APTT NOTED TO BE 51.7 WITH NO CHANGE NEEDED- COUMADIN THIS SHIFT NOTED NTO BE DECREASED FROM 10MG TO 4 MG THIS SHIFT PER L.CASE, MANAGER TECHNICAL TRAINING- GOOD PO INTAKE NOTED WITH MEALS- PT DENIES ANY C/O PAIN/DISCOMFORT AT THIS TIME- CALL LIGHT AND PERSONAL BELONGINGS WITH IN REACH- ALL NEEDS MET AT THIS TIME-WCTM
[2017-06-12 20:00] VITALS: BP 167/72
[2017-06-12 23:49] VITALS: BP 154/72
--- NOTE | 2017-06-13 02:56 | NUR ---
TOOK PT INTO CARE 1930. PT ON HEPARIN DRIP IN RIGHT HAND AT 6.74ML/HR. PT/INR NEEDING TO BE THERAPEUTIC TO GO HOME. ASSESSMENT COMPLETED CHARTED. NO C/O PAIN, ABLE TO MAKE NEEDS KNOWN, PT RESTING IN BED AT THIS TIME. WILL CONTINUE WITH PLAN OF CARE.
[2017-06-13 07:50] LABS: ABSOLUTE BASOPHILS 0.1 thou/uL (0.0-0.2); ABSOLUTE EOSINOPHILS 0.2 thou/uL (0.0-0.7); ABSOLUTE LYMPHOCYTES 0.8 thou/uL (0.8-5.3); ABSOLUTE MONOCYTES 0.9 thou/uL (0.0-1.2); EOSINOPHILS 2.7 %; HEMATOCRIT 32.5 % (37.0-47.0); HEMOGLOBIN 10.4 gm/dL (12.0-15.0); LYMPHOCYTES 10.4 %; MCH 28.9 pg (26.0-34.0); MCHC 32.1 g/dL (28.0-37.0); MCV 90.2 fL (80.0-100.0); MONOCYTES 11.3 %; MPV 7.5 fl. (7.2-11.1); NUCLEATED RBCS 0 /100WBC; PLATELET COUNT* 521 thou/uL (150-400); POLYS 74.6 %; RDW-CV 16.9 % (10.5-14.5)
[2017-06-13 07:56] LABS: INR 2.7; PROTIME 25.5 Seconds (9.20-11.50)
[2017-06-13 08:06] VITALS: BP 139/75
[2017-06-13 09:05] VITALS: BP 141/68
[2017-06-13] MEDS ORDERED: CARVEDILOL3.125 MG PO (09:21)
--- NOTE | 2017-06-13 10:15 | NUR ---
ASSUMED CARE OF PT THIS AM AROUND 0715- UPON ASSESSMENT PT NOTED TO BE RESTING IN BED SIDE CHAIR, AT SIDE VISITING- PT A&O X4-CONTINENT OF BOWEL AND BLADDER- UP AD-DAYNE WITH STEADY GAIT NOTED- LCTA, DIMINISHED IN BASES- VSS, O2 SAT 98% ON RA- ABDOMEN SOFT/ROUND/NON-TENDER, BS X4 QUADS- REPORTS TO HAVE HAD BM OVER NIGHT- +1 BLE EDEMA NOTED TO BLE- IV NOTED TO RIGHT WRIST INTACT- APTT THIS AM NOTED AT 61.6, INR 2.7- L.CASE, WORK COUNSELOR NOTIFIED WITH ORDERS RECIEVED TO D/C HEPARIN DRIP WITH OKAY TO D/C- HEPARIN DRIP D/C'D AT 0815 THIS AM- GI QUESTIONED IN REGUARDS TO SANDOSTATIN WITH INSURANCE NOT APPROVING- [place] STATES THAT THERE IS NO OTHER RECOMMENDATIONS FOR REPLACEMENT FOR D/C, PT HAVE TO MONITOR BE S/S BLEEDING- PT DENIES ANY C/O PAIN/DISCOMFORT AT THIS TIME- CALL LIGHT AND PERSONAL BELONGINGS WITH IN REACH- ALL NEEDS MET AT THIS TIME-TM
[2017-06-13] MEDS ORDERED: PRILOSEC 20 MG20 MG PO (10:26)
--- NOTE | 2017-06-13 11:12 | NUR ---
ORDERS RECIEVED FOR OKAY TO D/C HOME THIS SHIFT PER THIS SHIFT- IV TO RIGHT WRIST AND JEWELRY BENCH WORKER D/C'D PRIOR TO D/C- D/C TEACING/EDUCATION GIVEN TO PT PRIOR TO D/C, WITH ALL QUESTIONS AND CONCERNS ADDRESSED PRIOR TO D/C- WRITTEN EDUCATION ALONG WITH WRITTEN SCRIPTS GIVEN TO PT PRIOR TO D/C- FOLLOW UP APPOINTMENTS COMMUNICATED WITH WRITTEN CARDS FOR REMINDERS GIVEN- NEED FOR PT/INR BLODD DRAWS COMMUNICATED WITH WRITTEN PAPER WORK GIVEN TO PT AT D/C- BELONGINGS PACKED AND ACCOUNTED FOR PER PT- PT ESCORTED PER TECH WITH BELONGINGS, AT SIDE TO VEHICLE @ 1115- NO PROBLEMS TO NOTE AT TIME OF D/C
[2017-08-19] MEDS ORDERED: COZAAR 50 MG TA50 M2 PO (12:01)
[2017-08-19] MEDS ORDERED: MEDROLDOSEPACK PO (13:27)
== END 2017-06-13 11:15 | disposition home or self-care (01) | DRG 280 ==
LOC: M.ERS 19:15 → M.TBA-ER 20:34 → M.ICU 20:34 → M.2W 06-02 16:01
PROVIDERS: Emergency Medicine; Internal Medicine Cardiovascular Disease; Nurse Practitioner Family; ADMIT Internal Medicine
PROC: 30233N1 Transfusion of Nonautologous Red Blood Cells into Peripheral Vein, Percutaneous Approach (ICD-10-PCS; principal; 2017-06-01)
PROC: 30233L1 Transfusion of Nonautologous Fresh Plasma into Peripheral Vein, Percutaneous Approach (ICD-10-PCS; 2017-06-03)
PROC: 30233K1 Transfusion of Nonautologous Frozen Plasma into Peripheral Vein, Percutaneous Approach (ICD-10-PCS; 2017-06-03)
PROC: 0DJ08ZZ Inspection of Upper Intestinal Tract, Via Natural or Artificial Opening Endoscopic (ICD-10-PCS; 2017-06-04)
PROC: 0DJD8ZZ Inspection of Lower Intestinal Tract, Via Natural or Artificial Opening Endoscopic (ICD-10-PCS; 2017-06-05)
DX: I21.4 Non-ST elevation (NSTEMI) myocardial infarction (principal); I50.43 Acute on chronic combined systolic (congestive) and diastolic (congestive) heart failure; K57.31 Diverticulosis of large intestine without perforation or abscess with bleeding; D62 Acute posthemorrhagic anemia; D68.32 Hemorrhagic disorder due to extrinsic circulating anticoagulants; N39.0 Urinary tract infection, site not specified; I13.0 Hypertensive heart and chronic kidney disease with heart failure and stage 1 through stage 4 chronic kidney disease, or unspecified chronic kidney disease; I25.10 Atherosclerotic heart disease of native coronary artery without angina pectoris; E03.9 Hypothyroidism, unspecified; N18.3 Chronic kidney disease, stage 3 (moderate); I73.9 Peripheral vascular disease, unspecified; T45.515A Adverse effect of anticoagulants, initial encounter; E78.5 Hyperlipidemia, unspecified; E66.9 Obesity, unspecified; K44.9 Diaphragmatic hernia without obstruction or gangrene; B96.20 Unspecified Escherichia coli [E. coli] as the cause of diseases classified elsewhere; Z79.82 Long term (current) use of aspirin; Z79.899 Other long term (current) drug therapy; Z95.1 Presence of aortocoronary bypass graft; Q27.8 Other specified congenital malformations of peripheral vascular system; Z90.5 Acquired absence of kidney; Y92.89 Other specified places as the place of occurrence of the external cause; Z95.2 Presence of prosthetic heart valve; Z82.49 Family history of ischemic heart disease and other diseases of the circulatory system; Z68.34 Body mass index [BMI] 34.0-34.9, adult

== ENCOUNTER → 2017-07-16 | Outpatient (CLI) | payer OTHER ==
[~2017-07-16] MED LIST changes: +CARVEDILOL3.125 MG PO; +MEDROLDOSEPACK PO; +PRILOSEC 20 MG20 MG PO
[2017-07-16 10:58] LABS: ABSOLUTE BASOPHILS 0.1 thou/uL (0.0-0.2); ABSOLUTE EOSINOPHILS 0.1 thou/uL (0.0-0.7); ABSOLUTE LYMPHOCYTES 0.9 thou/uL (0.8-5.3); ABSOLUTE MONOCYTES 0.6 thou/uL (0.0-1.2); ABSOLUTE NEUTROPHILS 4.9 thou/uL (1.6-8.1); BASOPHILS 1.2 %; HEMATOCRIT 24.9 % (37.0-47.0); HEMOGLOBIN 8.2 gm/dL (12.0-15.0); LYMPHOCYTES 13.6 %; MCH 30.3 pg (26.0-34.0); MCV 91.9 fL (80.0-100.0); MPV 6.6 fl. (7.2-11.1); NUCLEATED RBCS 0 /100WBC; PLATELET COUNT* 441 thou/uL (150-400); POLYS 74.2 %; RBC 2.71 mil/uL (4.20-5.00); RDW-CV 18.8 % (10.5-14.5); WBC 6.7 thou/uL (4.0-11.0)
[2017-07-16 11:06] LABS: CALCIUM 9.5 mg/dL (8.5-10.1); CREATININE 1.2 mg/dL (0.6-1.3); POTASSIUM 3.3 mmol/L (3.5-5.1); TOTAL BILIRUBIN 0.5 mg/dL (<0.1-1.0); TOTAL PROTEIN 7.5 g/dL (6.4-8.2)
[2017-07-16 11:19] LABS: INR 3.2; PROTIME 30.8 Seconds (9.20-11.50)
[2017-07-16 13:08] LABS: ESR (SEDRATE) 60 mm/hr (0-30)
== END ==
LOC: M.CT 09:51 → M.LAB 10:00 → M.CT 11:00
PROVIDERS: Internal Medicine Gastroenterology
DX: N28.1 Cyst of kidney, acquired (principal); K82.8 Other specified diseases of gallbladder; K46.9 Unspecified abdominal hernia without obstruction or gangrene; D64.9 Anemia, unspecified

== ENCOUNTER → 2017-07-23 | Outpatient (CLI) | payer OTHER | LOC: M.MRI 10:55 | DX: M48.061 Spinal stenosis, lumbar region without neurogenic claudication (principal); M25.551 Pain in right hip; M25.552 Pain in left hip; G89.29 Other chronic pain; D61.9 Aplastic anemia, unspecified; E03.9 Hypothyroidism, unspecified; I05.9 Rheumatic mitral valve disease, unspecified ==

== ENCOUNTER → 2017-08-19 | Outpatient (CLI) | payer OTHER ==
--- NOTE | 2017-08-27 14:14 | PAINCON ---
[address] [address] PAIN MANAGEMENT CONSULTATION Name: NAILA LEE Room: [facility].#: [id number] Admission: 08/19/17 Attend Phys: Zhang Harris MD Discharge: Date of : 42 Report #: [id number] THIS REPORT FOR: //name// CC: KENNETH Harris DATE OF SERVICE: 08/19/2017 CHIEF COMPLAINT: Horrible pain in the lower back, especially when trying to get up in the morning. BRIEF HISTORY OF PRESENT ILLNESS: The patient is a 77-year-old female who has been referred to the pain clinic for evaluation. The patient states that she has been having pain since about May 2017. She had involves pain in the lower portion of her back. It radiates down into both legs. This is to the level of the buttocks. She states that the discomfort started abruptly. It has gotten worse over a period of time. Rates her pain as a 4-5/10. She has tried Tylenol Extra Strength. Notes that the pain can be worse with activities such as walking, sitting, standing, going from a standing to a sitting position as well as lifting and bending. She denies bowel or bladder dysfunction. ALLERGIES: IRON, DEXTRAN. CURRENT MEDICATIONS: Ascorbic acid 500 mg capsules b.i.d., Coreg 3.125 mg, folic acid 1 mg, hydrochlorothiazide 25 mg, levothyroxine 75 mcg, Cozaar 50 mg, Zocor 40 mg, warfarin 4 mg. PAST MEDICAL HISTORY: Hypertension, asthma, uneasy anemia, heart disease, gallbladder disease, thyroid disease, colon problems, joint disease/osteoarthritis, ulcers. PAST SURGICAL HISTORY: Tonsillectomy in her 20s, kidney removed in 1986, heart surgery x 3, third time, they put in an order artificial valve in 2009, colonoscopy. SOCIAL HISTORY: She is retired, has not worked since 2000. REVIEW OF SYSTEMS: Recent weight change, decreased appetite, fatigue and weakness. A 12-point review of systems, wears glasses, heart trouble, chest pain, shortness of breath walking flat, chronic frequent cough, asthma, wheezing, joint disease, joint pain, stiffness and swelling, weakness of muscles and joints, muscle pains with cramps, back pain, difficulty walking, varicose veins, numbness and tingling sensation, insomnia, bleeding tendency. LABORATORY DATA: [place] [address] PAIN MANAGEMENT CONSULTATION Name: NAILA LEE Room: [facility]#: [id number] Admission: 08/19/17 Attend Phys: Zhang Harris MD Discharge: Date of : 42 Report #: [id number] 1. Laboratory MRI of the lumbar spine dated 07/23/2017. to marked disk narrowing is present with chronic endplate changes and old small central disk protrusion. AP canal measures 11 are 12 mm. 2. L2-L3. Marked disk space narrowing is present with posterior osteophyte formation. Minimal central and right disk bulging is present without neural foraminal narrowing or nerve root displacement. The AP canal measures 11 mm. Hypertrophic facet changes present bilaterally. 3. L3-L4 loss of disk space height at the site with mild diffuse disk bulging. Small central and left protrusion was present. This extends into the left neural foramen and results in moderate narrowing without significant nerve root effacement. Hypertrophic facet changes are present bilaterally. The AP diameter measures 8 mm. Bilateral ligamentum flavum hypertrophy contributes to the central canal narrowing. 4. L4-L5 diffuse disk bulging and central disk protrusion was present. This was somewhat greater to the right and left. Marked ligamentum flavum hypertrophy is present. This results in severe central spinal and spinal narrowing with AP diameter 5 mm. Crowding of the nerve root is present in this area with mild redundancy. 5. L5-S1 loss of disk space height and disk signal was present with disk degeneration. Mild central disk bulging is present. AP diameter was well maintained measuring 18 mm. Mild hypertrophic changes present result in mild bilateral neural foraminal narrowing. PAIN CLINIC ASSESSMENT: 1. History of osteoarthritis. The patient has some arthritic changes in her spine, particularly at L4-L5 with narrowing and endplate changes. 2. Height 5 feet 2 inches, weight 186 pounds, BMI is 34. 3. Vital signs: Blood pressure 157/71, heart rate 74, respiratory rate 16, room air saturation 98%, temperature 97.9. Pain intensity 4-5/10. 4. Fall risk. The patient has not fallen in the last 3 months. 5. Blood thinner. The patient is on a blood thinning medication secondary to heart valve. 6. History of hypertension. The patient is being treated for hypertension. 7. Opioid therapy greater than 6 weeks. The patient is not on her opioid therapy. 8. Risk assessment tool. 9. Functional assessment tool. 10. Recreational drug use. The patient denies use of recreational drugs. 11. Tobacco: The patient denies use of tobacco. 12. Alcohol: The patient denies use of alcoholic beverages. PHYSICAL EXAMINATION: GENERAL: The patient is a well-developed white female, slightly obese. She appears her stated age. She is alert and oriented x 3. Affect is appropriate. HEENT: Normocephalic, atraumatic. Extraocular eye muscles intact. Hearing is within normal limits. Mucous membranes are moist. Sclerae [place] [address] PAIN MANAGEMENT CONSULTATION Name: NAILA LEE Room: [facility]#: [id number] Admission: 08/19/17 Attend Phys: Zhang Harris MD Discharge: Date of : 42 Report #: [id number] patient has significant amount of dark makeup over the right eye. NECK: Without adenopathy, one could hear the mechanical heart valve in the neck, good range of motion. HEART: Regular rate. Mechanical heart valve can be heard. ABDOMEN: Nontender. MUSCULOSKELETAL: Without significant kyphosis, lordosis, scoliosis. Upper muscle strength is judged to be 5/5 for the major muscle groups with symmetry +3 deep tendon reflexes, trace brachioradialis, difficult to appreciate triceps. Lower extremity strength 0is judged to be 5/5 for the major muscle groups. The patient complains of pain and discomfort in the lower portion of her back. Forward bending to about 35-40 degrees cause increased pain and discomfort in the back, left and right lateral rotation which were limited also cause increased pain and discomfort in the back musculature without complaint of pain radiating down to the leg. Deep tendon reflexes are +1 for the ankles, kneecaps, patellar reflexes bilaterally. The patient has pain and discomfort to palpation in the area of the left and right posterior superior iliac spine. Palpation in these areas reproduced the patient's discomfort. She vocalizes during this portion of the procedure. Denies pain radiating in an L5-S1 or L4-L5 distribution in her legs at this visit. ASSESSMENT: 1. History of findings consistent with lumbar radiculopathy by her primary care physician. MRI showing significant spinal stenosis at L4-L5 with an AP diameter of 5.5 mm. 2. Cardiac valve disease, status post replacement. 3. Colectomy, history of nephrectomy. 4. 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 5. Myofascial pain. 6. Chronic anticoagulation secondary to cardiac valve replacement. RECOMMENDATIONS: We discussed treatment options with the patient. During our evaluation. At this juncture, her pain seems to be more of a myofascial nature. Palpation in the area of the posterior superior iliac spine on the right cause the patient to wince vocalize and pull away briskly. She does not complain about significant pain and discomfort into her L5-S1 or L4-L5 dermatome at this juncture. We have discussed possible options. We will have the patient try a Medrol Dosepak and note its efficacy. If her pain persists, she will return to the pain clinic after being advised by her automobile body repairer. We explained that sometimes a automobile body repairer may want to limit the amount of anticoagulation the patient undergoes. We would recommend that she have an INR at least of 1.24 between 1.2 and 1.5 before prior to an injection. She will follow up in the near future. Hopefully, she would gleaned significant benefit from the Medrol Dosepak. If not, we will consider trigger point injections and in the future if needed epidural steroid injection to help control her pain. [place] [address] PAIN MANAGEMENT CONSULTATION Name: NAILA LEE Room: [facility] Lopez#: [id number] Admission: 08/19/17 Attend Phys: Zhang Harris MD Discharge: Date of : 42 Report #: [id number] thank you for letting us participate in her care. We hope she continues to improve. <ELECTRONICALLY SIGNED> By: Zhang Harris MD 08/27/17 1414 1630 1928N. Chito Harris MD /[facility]
== END ==
LOC: M.PC 01:59
DX: M47.26 Other spondylosis with radiculopathy, lumbar region (principal); E03.9 Hypothyroidism, unspecified; M79.1 Myalgia; D68.318 Other hemorrhagic disorder due to intrinsic circulating anticoagulants, antibodies, or inhibitors; Z98.890 Other specified postprocedural states; Z95.5 Presence of coronary angioplasty implant and graft

== ENCOUNTER → 2018-07-22 | Outpatient (CLI) | payer OTHER ==
--- NOTE | 2018-07-22 09:15 | 2DMMODE ---
[place] [address] 2 D/M-MODE ECHOCARDIOGRAM Name: LEENAILA M Room: [facility]#: [id number] Admission: 07/22/18 Attend Phys: Nadya Fernandez, Discharge: Date of : 44 Date of Service: 07/22/18 0914 Report #: [id number] THIS REPORT FOR: //name// APPROVED REPORT Study performed: 07/22/2018 08:12:59 EXAM: Comprehensive 2D, Doppler, and color-flow Echocardiogram BSA: 1.83 HR: 80 bpm BP: 149/69 mmHg Other Information Study Quality: Fair Indications Cardiomyopathy 2D Dimensions IVSd: 9.92 (7-11mm) LVOT Diam: 20.23 (18-24mm) LVDd: 34.76 mm PWd: 11.54 (7-11mm) Ascending Ao: 29.58 (22-36mm) LVDs: 41.21 (25-40mm) Aortic Root: 25.91 mm Volumes Left Atrial Volume (Systole) LA ESV Index: 18.90 mL/m2 Aortic Valve AoV Peak Esa.: 1.23 m/s AO Peak Gr.: 6.10 mmHg LVOT Max P.21 mmHg AO Mean Gr.: 3.01 mmHg LVOT Mean P.58 mmHg LVOT Max V: 1.25 m/s AO V2 VTI: 28.24 cm LVOT Mean V: 0.71 m/s SHAGUFTA (VTI): 3.05 cm2 LVOT V1 VTI: 26.82 cm Mitral Valve MV Peak Gr.: 10.10 mmHg MV Mean Gr.: 3.49 mmHg E/A Ratio: 2.07 MV Decel. Time: 176.12 ms MV E Max Esa.: 1.58 m/s MV PHT: 51.07 ms MVA (PHT): 4.31 [place] [address] 2 D/M-MODE ECHOCARDIOGRAM Name: SCOTT LEEN Morgan Room: [facility]#: [id number] Admission: 07/22/18 Attend Phys: Nadya Fernandez, Discharge: Date of : 44 Date of Service: 07/22/18 0914 Report #: [id number] TDI E/Lateral E': 22.57 E/Medial E': 17.56 Medial E' Esa.: 0.09 m/s Lateral E' Esa.: 0.07 m/s Pulmonary Valve PV Peak Esa.: 1.13 m/s PV Peak Gr.: 5.11 mmHg Left Ventricle The left ventricle is normal size. There is normal LV segmental wall motion. There is normal left ventricular wall thickness. The left ventricular systolic function is normal. The left ventricular ejection fraction is within the normal range. LVEF is 55%. The left ventricular diastolic function is normal. Right Ventricle The right ventricle is normal size. The right ventricular systolic function is normal. Atria The left atrium size is normal. The right atrium size is normal. Aortic Valve Moderate aortic valve sclerosis. No aortic regurgitation is present. There is no aortic valvular stenosis. Mitral Valve Mitral valve prosthesis is noted Mitral Valve Replacement Trace mitral regurgitation. No evidence of mitral valve stenosis. Tricuspid Valve The tricuspid valve is normal in structure. There is no tricuspid valve regurgitation noted. Pulmonic Valve The pulmonary valve is normal in structure. There is no pulmonic valvular regurgitation. Great Vessels The aortic root is normal in size. IVC is normal in size and collapses >50% [place] [address] 2 D/M-MODE ECHOCARDIOGRAM Name: DANILO LEEGAURAV Mora Room: [facility]#: [id number] Admission: 07/22/18 Attend Phys: Nadya Fernandez, Discharge: Date of : 44 Date of Service: 07/22/18 0914 Report #: [id number] There is no pericardial effusion. <Conclusion> The left ventricle is normal size. There is normal left ventricular wall thickness. The left ventricular systolic function is normal. The left ventricular ejection fraction is within the normal range. LVEF is 55%. The left ventricular diastolic function is normal. The right ventricle is normal size. The left atrium size is normal. Moderate aortic valve sclerosis. No aortic regurgitation is present. There is no aortic valvular stenosis. Mitral valve prosthesis is noted Trace mitral regurgitation. No evidence of mitral valve stenosis. The tricuspid valve is normal in structure. IVC is normal in size and collapses >50% with inspiration. There is no pericardial effusion. There is normal LV segmental wall motion. <ELECTRONICALLY SIGNED> By: Warren Serna MD, FACC 07/22/18913 3 3 Warren Serna MD, FACC /INF
== END ==
LOC: M.CRD 08:00
DX: I35.8 Other nonrheumatic aortic valve disorders (principal); I25.5 Ischemic cardiomyopathy; I50.22 Chronic systolic (congestive) heart failure; Z95.2 Presence of prosthetic heart valve; Z88.8 Allergy status to other drugs, medicaments and biological substances

== ENCOUNTER → 2018-09-02 | Outpatient (CLI) | payer OTHER | LOC: M.RAD 14:36 | DX: R05 Cough (principal) ==

== ENCOUNTER 2019-01-15 11:23 | Emergency (ER) | payer OTHER ==
[~2019-01-15] VITALS: Ht 157.5 cm; Wt 81.7 kg
[2019-01-15] MEDS ORDERED: MEDROLDOSEPACK PO (13:27)
[2019-01-15 14:00] VITALS: BP 177/86
== END 2019-01-15 14:01 | disposition home or self-care (01) ==
LOC: M.ERS 11:23
DX: M79.674 Pain in right toe(s) (principal); I10 Essential (primary) hypertension; E03.9 Hypothyroidism, unspecified; Z86.2 Personal history of diseases of the blood and blood-forming organs and certain disorders involving the immune mechanism

== ENCOUNTER → 2020-04-12 | Outpatient (CLI) | payer OTHER ==
[2020-04-12 12:34] LABS: INR 2.2; PROTIME 22.4 Seconds (9.20-11.50)
== END ==
LOC: M.LAB 12:03
PROVIDERS: ATTEND Nurse Practitioner
DX: I05.9 Rheumatic mitral valve disease, unspecified (principal); Z79.01 Long term (current) use of anticoagulants

== ENCOUNTER 2020-07-29 02:03 | Emergency (ER) | payer OTHER ==
[~2020-07-29] VITALS: Ht 170.2 cm; Wt 80.3 kg
[2020-07-29 03:11] LABS: ABSOLUTE EOSINOPHILS 0.1 thou/uL (0.0-0.7); ABSOLUTE LYMPHOCYTES 0.8 thou/uL (0.8-5.3); ABSOLUTE MONOCYTES 0.9 thou/uL (0.0-1.2); ABSOLUTE NEUTROPHILS 6.9 thou/uL (1.6-8.1); BASOPHILS 0.5 %; HEMATOCRIT 35.6 % (37.0-47.0); HEMOGLOBIN 11.8 gm/dL (12.0-15.0); LYMPHOCYTES 9.5 %; MCHC 33.2 g/dL (28.0-37.0); MCV 87.2 fL (80.0-100.0); MONOCYTES 9.8 %; MPV 7.4 fl. (7.2-11.1); NUCLEATED RBCS 0 /100WBC; PLATELET COUNT* 348 thou/uL (150-400); POLYS 79.2 %; RBC 4.08 mil/uL (4.20-5.00); RDW-CV 16.4 % (10.5-14.5); WBC 8.8 thou/uL (4.0-11.0)
[2020-07-29 03:15] LABS: INR 1.7
[2020-07-29 03:29] LABS: CALCIUM 9.6 mg/dL (8.5-10.1); CREATININE 1.4 mg/dL (0.6-1.3); POTASSIUM 3.5 mmol/L (3.5-5.1)
[2020-07-29 03:40] LABS: ALBUMIN 4.2 g/dL (3.4-5.0); MAGNESIUM 1.5 mg/dL (1.8-2.4); TOTAL BILIRUBIN 0.9 mg/dL (<0.1-1.0)
[2020-07-29 03:41] LABS: URINE BILIRUBIN NEGATIVE (Negative); URINE BLOOD TRACE (Negative); URINE CLARITY CLOUDY; URINE COLOR YELLOW; URINE GLUCOSE-RANDOM NEGATIVE (Negative); URINE KETONES NEGATIVE (Negative); URINE LEUKOCYTES-REFLEX TRACE (Negative); URINE NITRITE-REFLEX NEGATIVE (Negative); URINE PROTEIN 2+ (Negative); URINE UROBILINOGEN 0.2 E.U./dl (0.2-1.0)
[2020-07-29 04:07] LABS: BACTERIA-REFLEX >30 Many /HPF (None Seen); CRYSTALS None Seen /LPF (None Seen); FINE GRANULAR CASTS 0-3 Few /LPF (None Seen); HYALINE CASTS 0-3 Few /LPF (None Seen); MUCUS 4-6 Moderate strn/LPF (None Seen); SQUAMOUS 0-3 Few /LPF (0-3); URINE WBC-REFLEX >25 Many /HPF (0-5); WBC CLUMPS Moderate (None Seen)
[2020-07-29 06:21] VITALS: BP 155/80
--- NOTE | 2020-07-31 10:15 | EKG ---
[place] [address] ELECTROCARDIOGRAM REPORT Name: NAILA LEE Room: [place]#: [id number] Admission: 07/29/20 Attend Phys: Discharge: 07/29/20 Date of : 44 Date of Service: 07/29/20 0328 Report #: [id number] THIS REPORT FOR: //name// [facility] ED Test Date: 2020-07-29 Test Time: 03:28:57 Pat Name: NAILA LEE Department: Room: Gender: Research Hydrologist: CHANI : 1940 Requested By: Neha Montgomery Order Number: [id number] MD: Jd Casas Measurements Intervals [place] Rate: 87 P: 80 WI: 177 QRS: -31 QRSD: 158 T: 63 QT: 421 QTc: 507 Interpretive Statements Sinus rhythm Ventricular trigeminy Right bundle branch block Compared to ECG 06/03/2017 08:23:42 Ventricular premature complex(es) now present Right bundle-branch block now present T-wave abnormality no longer present Electronically Signed On 07-31-2020 10:15:41 CDT by Jd Casas [email or web address] <ELECTRONICALLY SIGNED> By: Jd Casas MD, [facility] 07/31/20 1015 0328 0328 Jd Casas MD, [facility] /EPI
== END 2020-07-29 06:22 | disposition still patient (30) ==
LOC: M.ERS 02:03
PROVIDERS: Emergency Medicine
DX: I16.0 Hypertensive urgency (principal); Z20.822 Contact with and (suspected) exposure to COVID-19; G93.41 Metabolic encephalopathy; N39.0 Urinary tract infection, site not specified; I10 Essential (primary) hypertension; E03.9 Hypothyroidism, unspecified; Z95.1 Presence of aortocoronary bypass graft; Z90.89 Acquired absence of other organs; Z86.2 Personal history of diseases of the blood and blood-forming organs and certain disorders involving the immune mechanism